=== PATIENT | female | born 1940 | race Caucasian/White ===

== ENCOUNTER 2018-11-23 17:33 | Observation (INO) | payer MEDICARE, BC ==
--- NOTE | 2018-11-23 17:53 | EDM.PDOC ---
ED HPI GENERAL MEDICAL PROBLEM - General Stated Complaint: LOW Sodium Time Seen by Provider: 11/23/18 17:33 Source of Information: Reports: Patient, Family History Limitations: Reports: No Limitations - History of Present Illness INITIAL COMMENTS - FREE TEXT/NARRATIVE: 78 y.o.w.f s/p left hip surgery on 11/12/2018 , came to the Clinic because of not feeling well. Her Na was 120 her K was 5.2. She was transferred to the ED for admission to the Hospital to correct her low sodium. Pt c/o epigastric pain with poor po intake in the past few days. She may have lost some weight as well. Pt is a poor historian. HPI was given by her daughter. Mild nausea, did not vomit, just feels week. BP 29/61 Pulse 64 Pulse ox 100% on RA, Temp 98.5 RR 17 Onset Date: 11/22/18 Onset Time: 18:00 Duration: Hour(s):, Getting Worse, Intermittent Location: Reports: Abdomen Quality: Reports: Ache, Burning, Dull Severity: Moderate Improves with: Reports: Rest Worsens with: Reports: Movement Context: Reports: Other (s/p left hip surgery 11/12/2018) Associated Symptoms: Reports: Weakness LEFT LEG Pain Score (Numeric/FACES): 4 - Related Data Allergies Allergy/AdvReac Type Severity Reaction Status Date / Time No Known Allergies Allergy Verified 11/23/18 18:44 Home Meds: Home Meds Acetaminophen 1,000 mg PO Q4H PRN 11/23/18 [History] Ascorbic Acid [Vitamin C] 1,000 mg PO DAILY 11/23/18 [History] Aspirin 81 mg PO BID 11/23/18 [History] Celecoxib [CeleBREX] 200 mg PO DAILY 11/23/18 [History] Cholecalciferol (Vitamin D3) [Vitamin D3] 5,000 unit PO DAILY 11/23/18 [History] Docusate Sodium [Colace] 100 mg PO BID 11/23/18 [History] Gabapentin [Neurontin] 300 mg PO BID 11/23/18 [History] Ibuprofen [Advil] 400 mg PO Q6H PRN 11/23/18 [History] Lactobacillus Reuteri [Biogaia] 1 each PO DAILY 11/23/18 [History] Levothyroxine [Synthroid] 100 mcg PO ACBREAKFAST 11/23/18 [History] Metoprolol Succinate [Toprol XL] 25 mg PO DAILY 11/23/18 [History] Ondansetron HCl [Zofran] 4 mg PO TID PRN 11/23/18 [History] Propylene Glycol [Systane Balance] 1 drop OP TID PRN 11/23/18 [History] Sulfamethoxazole/Trimethoprim [Bactrim Ds Tablet] 1 tab PO BID 11/23/18 [History ] amLODIPine Besylate [Norvasc] 10 mg PO DAILY 11/23/18 [History] cycloSPORINE [Restasis] 1 each .XX BID 11/23/18 [History] hydroCHLOROthiazide [Hydrochlorothiazide] 25 mg PO DAILY 11/23/18 [History] tiZANidine [Zanaflex] 4 mg PO DAILY 11/23/18 [History] ED ROS GENERAL - Review of Systems Review Of Systems: See Below Constitutional: Reports: Weakness, Fatigue HEENT: Reports: No Symptoms Respiratory: Reports: No Symptoms Cardiovascular: Reports: No Symptoms Endocrine: Reports: No Symptoms GI/Abdominal: Reports: Abdominal Pain (epigastric) : Reports: No Symptoms Musculoskeletal: Reports: Muscle Pain Skin: Reports: No Symptoms Neurological: Reports: No Symptoms Psychiatric: Reports: No Symptoms Hematologic/Lymphatic: Reports: No Symptoms Immunologic: Reports: No Symptoms ED EXAM, GENERAL - Physical Exam Exam: See Below Exam Limited By: No Limitations General Appearance: Alert, WD/WN, Moderate Distress Eye Exam: Bilateral Eye: Normal Inspection Ears: Normal External Exam Ear Exam: Bilateral Ear: Auricle Normal Nose: Normal Inspection, Normal Mucosa, No Blood Throat/Mouth: Normal Lips, Normal Voice, No Airway Compromise, Other (yvan mucosal mmebrane) Head: Atraumatic, Normocephalic Neck: Normal Inspection, Supple, Non-Tender, Full Range of Motion Respiratory/Chest: No Respiratory Distress, Lungs Clear, Normal Breath Sounds Cardiovascular: Normal Peripheral Pulses, Regular Rate, Rhythm, No Edema, No Gallop, No JVD Peripheral Pulses: 1+: Brachial (R) GI/Abdominal: Tender (epigastric tenderness) (Female) Exam: Deferred Rectal (Female) Exam: Deferred Back Exam: Normal Inspection, Full Range of Motion Extremities: Normal Inspection Neurological: Alert, Oriented, CN II-XII Intact, Abnormal Gait (s/p left hip surgery, walk with walker) Psychiatric: Normal Affect, Normal Mood Skin Exam: Warm, Dry, Intact, Normal Color, No Rash Lymphatic: No Adenopathy Course - Vital Signs Text/Narrative:: 78 y.o.w.f s/p left hip surgery on 11/12/2018 , came to the Clinic because of not feeling well. Her Na was 120 her K was 5.2. She was transferred to the ED for admission to the Hospital to correct her low sodium. Pt c/o epigastric pain with poor po intake in the past few days. She may have lost some weight as well. Pt is a poor historian. HPI was given by her daughter. Mild nausea, did not vomit, just feels week. BP 29/61 Pulse 64 Pulse ox 100% on RA, Temp 98.5 RR 17 PE: WNWD w f feeling week after hip surgery. NA was 120 in the clinic Imaging: Not indicated Labs: Was taken at [facility] and sent to ED: Na was 120 K was 5.2 CBC showed a nl WBC Impression: Hyponatremia, Weakness, S/P left hip surgery, gastritis Tx: NS, Zofran, Protonix Reecam: doing better, ECG pending Plan: Admit for obs with tele 5.57 pm Consultation: Dr. Sauer, hospitalist: Accepted the pt for admission Last Recorded V/S: Last Vital Signs Temp 36.8 C 11/23/18 19:15 Pulse 79 11/23/18 19:15 Resp 18 11/23/18 19:15 BP 130/63 11/23/18 19:15 Pulse Ox 99 11/23/18 19:15 - Orders/Labs/Meds Orders: Active Orders 24 hr Category Date Time Status Patient Status [ADT] Routine ADT 11/23/18 17:55 Active Cardiac Monitoring [RC] CONTINUOUS Care 11/23/18 17:58 Active Oxygen Therapy [RC] PRN Care 11/23/18 17:55 Active Up With Assistance [RC] ASDIRECTED Care 11/23/18 17:55 Active VTE/DVT Education [RC] Per Unit Routine Care 11/23/18 17:55 Active Vital Signs [RC] Q4H Care 11/23/18 17:55 Active BASIC METABOLIC PANEL,BMP [CHEM] Stat Lab 11/23/18 23:55 Ordered Resuscitation Status Routine Resus Stat 11/23/18 17:55 Ordered Meds: Medications Discontinued Medications Generic Name Dose Route Start Last Admin Trade Name Bong PRN Reason Stop Dose Admin Sodium Chloride 1,000 mls @ 500 mls/hr 11/23/18 18:03 11/23/18 18:29 Normal Saline IV 11/23/18 20:02 500 mls/hr .BOLUS ONE Administration Ondansetron HCl 8 mg 11/23/18 18:06 11/23/18 18:31 Zofran IVPUSH 11/23/18 18:07 8 mg ONETIME ONE Administration Pantoprazole Sodium 40 mg 11/23/18 18:06 11/23/18 18:34 Protonix Iv IVPUSH 11/23/18 18:07 40 mg ONETIME ONE Administration Departure - Departure Time of Disposition: 18:00 Disposition: Admitted As Inpatient 67 Condition: Fair Clinical Impression: Low sodium levels - Discharge Information - My Orders Last 24 Hours: My Active Orders 11/23/18 17:55 Patient Status [ADT] Routine Oxygen Therapy [RC] PRN Up With Assistance [RC] ASDIRECTED VTE/DVT Education [RC] Per Unit Routine Vital Signs [RC] Q4H Resuscitation Status Routine 11/23/18 17:58 Cardiac Monitoring [RC] CONTINUOUS 11/23/18 23:55 BASIC METABOLIC PANEL,BMP [CHEM] Stat - Assessment/Plan Last 24 Hours: My Active Orders 11/23/18 17:55 Patient Status [ADT] Routine Oxygen Therapy [RC] PRN Up With Assistance [RC] ASDIRECTED VTE/DVT Education [RC] Per Unit Routine Vital Signs [RC] Q4H Resuscitation Status Routine 11/23/18 17:58 Cardiac Monitoring [RC] CONTINUOUS 11/23/18 23:55 BASIC METABOLIC PANEL,BMP [CHEM] Stat
[2018-11-23] MEDS ORDERED: Sodium Chloride 0.9% 1,000 ML IV ONE (18:03)
[2018-11-23] MEDS ORDERED: Pantoprazole 40 MG Vial IVPUSH ONE (18:06)
[2018-11-23] MEDS ORDERED: Ondansetron 4 MG/2 ML SDV IVPUSH ONE (18:06)
[2018-11-23] MEDS ORDERED: Sodium Chloride 0.9% 1,000 ML IV SCH (21:00)
[2018-11-23] MEDS: Enoxaparin 30 MG/0.3 ML Syringe SUBCUT SCH (22:28)
[2018-11-23] MEDS ORDERED: diphenhydrAMINE 50 MG Cap PO ONE (23:45)
[2018-11-24] MEDS ORDERED: Acetaminophen 325 MG Tab PO PRN (01:38)
--- NOTE | 2018-11-24 08:21 | PCM.HP ---
H&P History of Present Illness - General Date of Service: 11/24/18 Admit Problem/Dx: Admission Diagnosis/Problem Admission Diagnosis/Problem Hyponatremia Source of Information: Patient History Limitations: Reports: No Limitations - History of Present Illness Initial Comments - Free Text/Narative: Lisa is a 78-year-old female who came in because of vomiting creel clerk weakness for 3 days. She also complained of anorexia, nausea and general malaise. She was found to have a sodium 120 the clinic and admitted for rehydration. She does admit to drinking lots of water and sodium was normal last year but after hip surgery a few months ago start trending downwards. Was 128 in September. She complains of no cough or chest pain and she has no headache or visual disturbance. She has a history of spinal hemostasis the lumbar spine, hypothyroidism, and hypertension that previously well controlled. Headache Pain Score (Numeric/FACES): 6 LEFT LEG Pain Score (Numeric/FACES): 4 - Related Data Allergies/Adverse Reactions: Allergies Allergy/AdvReac Type Severity Reaction Status Date / Time No Known Allergies Allergy Verified 11/23/18 18:44 Home Medications: Home Meds Acetaminophen 1,000 mg PO Q4H PRN 11/23/18 [History] Ascorbic Acid [Vitamin C] 1,000 mg PO DAILY 11/23/18 [History] Aspirin 81 mg PO BID 11/23/18 [History] Cholecalciferol (Vitamin D3) [Vitamin D3] 2,000 unit PO BEDTIME 11/23/18 [ History] Cholecalciferol (Vitamin D3) [Vitamin D3] 3,000 unit PO DAILY 11/23/18 [History] Docusate Sodium [Colace] 200 mg PO BID 11/23/18 [History] Ferrous Gluconate [Iron] 65 mg PO BID 11/23/18 [History] Gabapentin [Neurontin] 300 mg PO BEDTIME 11/23/18 [History] Lactobacillus Reuteri [Biogaia] 1 each PO DAILY 11/23/18 [History] Levothyroxine [Synthroid] 100 mcg PO ACBREAKFAST 11/23/18 [History] Metoprolol Succinate [Toprol XL] 25 mg PO DAILY 11/23/18 [History] Ondansetron HCl [Zofran] 4 mg PO TID PRN 11/23/18 [History] Propylene Glycol [Systane Balance] 1 drop OP TID PRN 11/23/18 [History] amLODIPine Besylate [Norvasc] 10 mg PO DAILY 11/23/18 [History] cycloSPORINE [Restasis] 1 each .XX BID 11/23/18 [History] hydroCHLOROthiazide [Hydrochlorothiazide] 25 mg PO DAILY 11/23/18 [History] tiZANidine [Zanaflex] 4 mg PO BEDTIME 11/23/18 [History] 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: Endocrine/Metabolic History: Reports: Hypothyroidism - Past Surgical History Female Surgical History: Reports: Hysterectomy Other Musculoskeletal Surgeries/Procedures:: BACK SURGERY, HIP SURGERY Social & Family History - Family History Family Medical History: Noncontributory - Tobacco Use Smoking Status *Q: Former Smoker Used Tobacco, but Quit: Yes Month/Year Tobacco Last Used: 1969 Second Hand Smoke Exposure: No - Caffeine Use Caffeine Use: Reports: Coffee - Recreational Drug Use Recreational Drug Use: No H&P Review of Systems - Review of Systems: Review Of Systems: ROS reveals no pertinent complaints other than HPI. Exam - Exam Exam: See Below - Vital Signs Vital Signs: Last Vital Signs Temp 98.2 F 11/24/18 04:00 Pulse 74 11/24/18 04:00 Resp 16 11/24/18 04:00 BP 150/80 H 11/24/18 04:00 Pulse Ox 96 11/24/18 04:00 Weight: 74.026 kg - Exam General: Alert, Oriented, 4 HEENT: PERRLA, Hearing Intact, Mucosa Moist & [place], Nares Patent, Normal Nasal Septum, Posterior Pharynx Clear, Conjunctiva Clear, EOMI, EACs Clear, TMs Clear Neck: Supple, Trachea Midline, 2 Lungs: Clear to Auscultation, Normal Respiratory Effort Cardiovascular: Regular Rate, Regular Rhythm GI/Abdominal Exam: Normal Bowel Sounds, Soft, Non-Tender, No Organomegaly, No Distention, No Abnormal Bruit, No Mass, Pelvis Stable (Female) Exam: Deferred Rectal (Female) Exam: Deferred Back Exam: Normal Inspection, Full Range of Motion, NT Extremities: Normal Inspection, Normal Range of Motion, Non-Tender, No Pedal Edema, Normal Capillary Refill Skin: Warm, Dry, Intact Neurological: Cranial Nerves Intact, Reflexes Equal Bilateral Neuro Extensive - Mental Status: Alert, Oriented x3, Normal Mood/Affect, Normal Cognition Neuro Extensive - Motor, Sensory, Reflexes: CN II-XII Intact, Normal Gait, Normal Reflexes Psychiatric: Alert, Normal Affect, Normal Mood - Patient Data Lab Results Last 24 hrs: Laboratory Results - last 24 hr 11/23/18 11/23/18 11/24/18 Range/Units 21:30 23:55 06:20 WBC 5.0 (4.5-12.0) X10-3/uL RBC 2.78 L (3.23-5.20) x10(6)uL Hgb 9.7 L (11.5-15.5) g/dL Hct 27.9 L (30.0-51.3) % MCV 100.5 H (80-96) fL MCH 35.1 H (27.7-33.6) pg MCHC 34.9 (32.2-35.4) g/dL RDW 12.0 (11.5-15.5) % Plt Count 288 (125-369) X10(3)uL MPV 8.0 (7.4-10.4) fL Neut % (Auto) 72.4 (46-82) % Lymph % (Auto) 17.4 (13-37) % [place] % (Auto) 8.6 (4-12) % Eos % (Auto) 2 (1.0-5.0) % Baso % (Auto) 0 (0-2) % Neut # (Auto) 3.6 (1.6-8.3) # Lymph # (Auto) 0.9 (0.6-5.0) # [place] # (Auto) 0.4 (0.0-1.3) # Eos # (Auto) 0.1 (0.0-0.8) # Baso # (Auto) 0.0 (0.0-0.2) # Sodium 122 L (135-145) mmol/L Potassium 4.1 (3.5-5.3) mmol/L Chloride 87 L* (100-110) mmol/L Carbon Dioxide 25 (21-32) mmol/L BUN 22 H (7-18) mg/dL Creatinine 1.0 (0.55-1.02) mg/dL Est Cr Clr Drug Dosing 37.26 mL/min Estimated GFR (MDRD) 54 L (>60) BUN/Creatinine Ratio 22.0 H (9-20) Glucose 107 (80-116) mg/dL Calcium 8.6 (8.6-10.2) mg/dL Total Bilirubin (0.1-1.3) mg/dL AST (5-25) IU/L ALT (12-36) U/L Alkaline Phosphatase (56-112) IU/L Total Protein (6.0-8.0) g/dL Albumin (3.2-4.6) g/dL Globulin g/dL Albumin/Globulin Ratio Urine Color Yellow (YELLOW) Urine Appearance Clear (CLEAR) Urine pH 6.0 (5.0-6.5) Ur Specific [place] 1.005 L (1.010-1.025) Urine Protein Negative (NEGATIVE) mg/dL Urine Glucose (UA) Normal (NORMAL) mg/dL Urine Ketones Negative (NEGATIVE) mg/dL Urine Occult Blood Negative (NEGATIVE) Urine Nitrite Negative (NEGATIVE) Urine Bilirubin Negative (NEGATIVE) Urine Urobilinogen Normal (NEGATIVE) mg/dL Ur Leukocyte Esterase Negative (NEGATIVE) Urine RBC Not seen (0-5) Urine WBC 0-5 (0-5) Ur Squamous Epith Cells Rare (NS,R,O) Urine Bacteria Rare H (NS) 11/24/18 Range/Units 06:20 WBC (4.5-12.0) X10-3/uL RBC (3.23-5.20) x10(6)uL Hgb (11.5-15.5) g/dL Hct (30.0-51.3) % MCV (80-96) fL MCH (27.7-33.6) pg MCHC (32.2-35.4) g/dL RDW (11.5-15.5) % Plt Count (125-369) X10(3)uL MPV (7.4-10.4) fL Neut % (Auto) (46-82) % Lymph % (Auto) (13-37) % [place] % (Auto) (4-12) % Eos % (Auto) (1.0-5.0) % Baso % (Auto) (0-2) % Neut # (Auto) (1.6-8.3) # Lymph # (Auto) (0.6-5.0) # [place] # (Auto) (0.0-1.3) # Eos # (Auto) (0.0-0.8) # Baso # (Auto) (0.0-0.2) # Sodium 123 L (135-145) mmol/L Potassium 4.0 (3.5-5.3) mmol/L Chloride 89 L* (100-110) mmol/L Carbon Dioxide 26 (21-32) mmol/L BUN 18 (7-18) mg/dL Creatinine 1.0 (0.55-1.02) mg/dL Est Cr Clr Drug Dosing 37.26 mL/min Estimated GFR (MDRD) 54 L (>60) BUN/Creatinine Ratio 18.0 (9-20) Glucose 115 (80-116) mg/dL Calcium 8.6 (8.6-10.2) mg/dL Total Bilirubin 0.4 (0.1-1.3) mg/dL AST 49 H (5-25) IU/L ALT 31 (12-36) U/L Alkaline Phosphatase 68 (56-112) IU/L Total Protein 6.8 (6.0-8.0) g/dL Albumin 3.1 L (3.2-4.6) g/dL Globulin 3.7 g/dL Albumin/Globulin Ratio 0.8 Urine Color (YELLOW) Urine Appearance (CLEAR) Urine pH (5.0-6.5) Ur Specific [place] (1.010-1.025) Urine Protein (NEGATIVE) mg/dL Urine Glucose (UA) (NORMAL) mg/dL Urine Ketones (NEGATIVE) mg/dL Urine Occult Blood (NEGATIVE) Urine Nitrite (NEGATIVE) Urine Bilirubin (NEGATIVE) Urine Urobilinogen (NEGATIVE) mg/dL Ur Leukocyte Esterase (NEGATIVE) Urine RBC (0-5) Urine WBC (0-5) Ur Squamous Epith Cells (NS,R,O) Urine Bacteria (NS) Result Diagrams: 11/24/18 06:20 11/24/18 06:20 - Problem List (1) Low sodium levels SNOMED Code(s): 34336047 ICD Code: E87.1 - HYPO-OSMOLALITY AND HYPONATREMIA Status: Acute Current Visit: Yes (2) Hypothyroidism SNOMED Code(s): 64307247 ICD Code: E03.9 - HYPOTHYROIDISM, UNSPECIFIED Status: Chronic Current Visit: Yes (3) HTN (hypertension) SNOMED Code(s): 41014988 ICD Code: I10 - ESSENTIAL (PRIMARY) HYPERTENSION Status: Chronic Current Visit: Yes Qualifiers: Hypertension type: essential hypertension Qualified Code(s): I10 - Essential (primary) hypertension (4) Lumbar back pain SNOMED Code(s): 528908406 ICD Code: M54.5 - LOW BACK PAIN Status: Chronic Current Visit: Yes (5) Rheumatoid arthritis SNOMED Code(s): 41802292 ICD Code: M06.9 - RHEUMATOID ARTHRITIS, UNSPECIFIED Status: Chronic Current Visit: Yes (6) Anemia SNOMED Code(s): 960232955 ICD Code: D64.9 - ANEMIA, UNSPECIFIED Status: Chronic Current Visit: Yes Problem List Initiated/Reviewed/Updated: Yes Orders Last 24hrs: Active Orders 24 hr Category Date Time Status Patient Status [ADT] Routine ADT 11/23/18 17:55 Active Cardiac Monitoring [RC] CONTINUOUS Care 11/23/18 17:58 Active Oxygen Therapy [RC] PRN Care 11/23/18 17:55 Active Up With Assistance [RC] ASDIRECTED Care 11/23/18 17:55 Active VTE/DVT Education [RC] Per Unit Routine Care 11/23/18 17:55 Active Vital Signs [RC] 08,12,16,20,00,04 Care 11/23/18 17:55 Active Regular Diet [DIET] Diet 11/24/18 Breakfast Active OSMOLALITY Urgent Lab 11/24/18 06:20 Received OSMOLALITY, URINE Urgent Lab 11/24/18 07:40 Ordered TSH ULTRASENSITIVE [CHEM] Routine Lab 11/24/18 07:40 Received Acetaminophen [Tylenol] Med 11/24/18 01:38 Active 650 mg PO Q4H PRN Enoxaparin [Lovenox] Med 11/23/18 22:00 Active 30 mg SUBCUT Q24H Sodium Chloride 0.9% [Normal Saline] 1,000 ml Med 11/24/18 00:44 Active IV ASDIRECTED Resuscitation Status Routine Resus Stat 11/23/18 17:55 Ordered EKG 12 Lead [EK] Routine Ther 11/23/18 18:33 Ordered Medication Orders Acetaminophen (Tylenol) 650 mg PO Q4H PRN PRN Reason: Pain Last Admin: 11/24/18 02:07 Dose: 650 mg Enoxaparin Sodium (Lovenox) 30 mg SUBCUT Q24H [facility] Last Admin: 11/23/18 22:28 Dose: 30 mg Sodium Chloride (Normal Saline) 1,000 mls @ 75 mls/hr IV ASDIRECTED [facility] Assessment/Plan Comment:: The cause of the hyponatremia is unclear but it's possibly hypoosmolar Isovolemic. I will obtain a serum and urine osmolality I recommend continuation of IV fluid resuscitation, with crystalloid normal saline, restrict free water to less than thousand ml a day, and stop the hydrochlorothiazide. Will repeat sodium in the morning.
[2018-11-24] MEDS ORDERED: Ondansetron 4 MG/2 ML SDV IVPUSH PRN (08:23)
[2018-11-24] MEDS ORDERED: PROPYLENE GLYCOL 0.6% EYEBOTH PRN (08:25)
[2018-11-24] MEDS ORDERED: Acetaminophen 500 MG Tab PO PRN ×2 (08:25→18:52)
[2018-11-24] MEDS: Sodium Chloride 0.9% 1,000 ML IV SCH ×2 (08:31→21:54)
[2018-11-24] MEDS ORDERED: cycloSPORINE Ophth Drops U/D Box of 30 SCH (09:00)
[2018-11-24] MEDS: amLODIPine 10 MG Tab ** OWN MED PO SCH (11:40)
[2018-11-24] MEDS: METOPROLOL SUCCINATE 25 MG PO SCH (11:41)
[2018-11-24] MEDS: Docusate Sodium 100 MG Cap PO SCH ×2 (13:00→21:01)
[2018-11-24] MEDS: Ascorbic Acid 500 MG Tab PO SCH (13:00)
[2018-11-24] MEDS: Cholecalciferol (Vitamin D3) 1,000 Unit Tab PO SCH (13:00)
[2018-11-24] MEDS: Aspirin 81 MG Tab.Chew PO SCH ×2 (13:00→21:00)
[2018-11-24] MEDS: Lactobacillus Rhamnosus GG (Probiotic) Cap PO SCH (13:00)
[2018-11-24] MEDS: Pantoprazole 40 MG Tab.CR PO SCH (13:51)
[2018-11-24] MEDS: FERROUS GLUCONATE 65 MG PO SCH ×2 (18:57→21:01)
[2018-11-24] MEDS ORDERED: Gabapentin 300 MG Cap ** OWN MED PO SCH (21:00)
[2018-11-24] MEDS ORDERED: TIZANIDINE 4 MG PO SCH (21:00)
[2018-11-24] MEDS ORDERED: Cholecalciferol (Vitamin D3) 1,000 Unit Tab PO SCH (21:00)
[2018-11-24] MEDS: Enoxaparin 30 MG/0.3 ML Syringe SUBCUT SCH (21:07)
[2018-11-25] MEDS ORDERED: Levothyroxine 100 MCG Tab ** OWN MED PO SCH (07:30)
--- NOTE | 2018-11-25 08:32 | PCM.PN ---
- General Info Date of Service: 11/25/18 Subjective Update: Feels much better. Some nausea at the end of meals. - Review of Systems HEENT: Reports: No Symptoms Pulmonary: Reports: No Symptoms Cardiovascular: Reports: No Symptoms Genitourinary: Reports: No Symptoms - Patient Data Vitals - Most Recent: Last Vital Signs Temp 98.0 F 11/25/18 02:00 Pulse 67 11/25/18 02:00 Resp 16 11/25/18 02:00 BP 150/80 H 11/25/18 02:00 Pulse Ox 94 L 11/25/18 02:00 Weight - Most Recent: 74.026 kg I&O - Last 24 Hours: Intake & Output 11/24/18 11/25/18 11/25/18 22:59 06:59 14:59 Intake Total 555 555 Balance 555 555 Lab Results Last 24 Hours: Laboratory Results - last 24 hr 11/24/18 11/25/18 11/25/18 Range/Units 06:20 06:20 06:20 WBC 4.4 L (4.5-12.0) X10-3/uL RBC 2.79 L (3.23-5.20) x10(6)uL Hgb 9.8 L (11.5-15.5) g/dL Hct 28.1 L (30.0-51.3) % MCV 100.8 H (80-96) fL MCH 35.0 H (27.7-33.6) pg MCHC 34.8 (32.2-35.4) g/dL RDW 12.0 (11.5-15.5) % Plt Count 309 (125-369) X10(3)uL MPV 7.5 (7.4-10.4) fL Add Manual Diff Yes Neutrophils % (Manual) 53 (46-82) % Lymphocytes % (Manual) 32 (13-37) % Monocytes % (Manual) 15 H (4-12) % Macrocytosis Few Sodium 130 L (135-145) mmol/L Potassium 4.2 (3.5-5.3) mmol/L Chloride 94 L D (100-110) mmol/L Carbon Dioxide 29 (21-32) mmol/L BUN 15 (7-18) mg/dL Creatinine 0.7 (0.55-1.02) mg/dL Est Cr Clr Drug Dosing 53.23 mL/min Estimated GFR (MDRD) > 60 (>60) BUN/Creatinine Ratio 21.4 H (9-20) Glucose 96 (80-116) mg/dL Calcium 8.6 (8.6-10.2) mg/dL Total Bilirubin 0.3 (0.1-1.3) mg/dL AST 48 H (5-25) IU/L ALT 32 (12-36) U/L Alkaline Phosphatase 69 (56-112) IU/L Total Protein 6.5 (6.0-8.0) g/dL Albumin 2.9 L (3.2-4.6) g/dL Globulin 3.6 g/dL Albumin/Globulin Ratio 0.8 TSH, Ultra Sensitive 3.11 (0.36-3.74) IU/mL Med Orders - Current: Current Medications Acetaminophen (Tylenol Extra Strength) 1,000 mg PO Q6H PRN PRN Reason: Pain Amlodipine Besylate (Norvasc) 10 mg PO DAILY [facility] Last Admin: 11/24/18 11:40 Dose: 10 mg Ascorbic Acid (Vitamin C) 1,000 mg PO DAILY [facility] Last Admin: 11/24/18 13:00 Dose: 1,000 mg Aspirin (Aspirin) 81 mg PO BID [facility] Last Admin: 11/24/18 21:00 Dose: 81 mg Cholecalciferol (Vitamin D3) 2,000 units PO BEDTIME [facility] Last Admin: 11/24/18 21:01 Dose: 2,000 units Cholecalciferol (Vitamin D3) 3,000 units PO DAILY [facility] Last Admin: 11/24/18 13:00 Dose: 3,000 units Cyclosporine (Restasis) 1 each .XX BID [facility] Docusate Sodium (Colace) 200 mg PO BID [facility] Last Admin: 11/24/18 21:01 Dose: 200 mg Enoxaparin Sodium (Lovenox) 30 mg SUBCUT Q24H [facility] Last Admin: 11/24/18 21:07 Dose: 30 mg Gabapentin (Neurontin) 300 mg PO BEDTIME [facility] Last Admin: 11/24/18 21:01 Dose: 300 mg Sodium Chloride (Normal Saline) 1,000 mls @ 75 mls/hr IV ASDIRECTED [facility] Last Admin: 11/24/18 21:54 Dose: 75 mls/hr Lactobacillus Rhamnosus (Culturelle) 1 cap PO DAILY [facility] Last Admin: 11/24/18 13:00 Dose: 1 cap Levothyroxine Sodium (Synthroid) 100 mcg PO ACBREAKFAST [facility] Last Admin: 11/25/18 07:08 Dose: 100 mcg Metoprolol Succinate (Toprol Xl) 25 mg PO DAILY [facility] Last Admin: 11/24/18 11:41 Dose: 25 mg Ferrous Gluconate [ Iron] 65mg Own Med 65 mg PO BID [facility] Last Admin: 11/24/18 21:01 Dose: 65 mg Ondansetron HCl (Zofran) 4 mg IVPUSH Q6H PRN PRN Reason: Nausea/Vomiting Last Admin: 11/24/18 11:33 Dose: 4 mg Pantoprazole Sodium (Protonix) 40 mg PO 0900 [facility] Last Admin: 11/24/18 13:51 Dose: 40 mg Propylene Glycol (Systane Balance) 0 ml EYEBOTH TID PRN PRN Reason: Dry Eyes Tizanidine HCl (Zanaflex) 4 mg PO BEDTIME [facility] Last Admin: 11/24/18 21:02 Dose: 4 mg Discontinued Medications Acetaminophen (Tylenol) 650 mg PO Q4H PRN PRN Reason: Pain Last Admin: 11/24/18 02:07 Dose: 650 mg Acetaminophen (Tylenol Extra Strength) 1,000 mg PO Q4H PRN PRN Reason: Pain Diphenhydramine HCl (Benadryl) 50 mg PO ONETIME ONE Stop: 11/23/18 23:46 Last Admin: 11/24/18 00:13 Dose: 50 mg Sodium Chloride (Normal Saline) 1,000 mls @ 500 mls/hr IV .BOLUS ONE Stop: 11/23/18 20:02 Last Admin: 11/23/18 18:29 Dose: 500 mls/hr Sodium Chloride (Normal Saline) 1,000 mls @ 125 mls/hr IV ASDIRECTED [facility] Last Admin: 11/23/18 21:00 Dose: 125 mls/hr Ondansetron HCl (Zofran) 8 mg IVPUSH ONETIME ONE Stop: 11/23/18 18:07 Last Admin: 11/23/18 18:31 Dose: 8 mg Pantoprazole Sodium (Protonix Iv) 40 mg IVPUSH ONETIME ONE Stop: 11/23/18 18:07 Last Admin: 11/23/18 18:34 Dose: 40 mg - Exam General: Alert HEENT: Pupils Equal Neck: Supple Lungs: Clear to Auscultation Cardiovascular: Regular Rate, Murmurs GI/Abdominal Exam: Normal Bowel Sounds - Problem List & Annotations (1) Low sodium levels SNOMED Code(s): 16322545 Code(s): E87.1 - HYPO-OSMOLALITY AND HYPONATREMIA Status: Acute Current Visit: Yes (2) Hypothyroidism SNOMED Code(s): 39231791 Code(s): E03.9 - HYPOTHYROIDISM, UNSPECIFIED Status: Chronic Current Visit: Yes Qualifiers: Hypothyroidism type: acquired Qualified Code(s): E03.9 - Hypothyroidism, unspecified (3) HTN (hypertension) SNOMED Code(s): 25145762 Code(s): I10 - ESSENTIAL (PRIMARY) HYPERTENSION Status: Chronic Current Visit: Yes Qualifiers: Hypertension type: essential hypertension Qualified Code(s): I10 - Essential (primary) hypertension (4) Lumbar back pain SNOMED Code(s): 864353456 Code(s): M54.5 - LOW BACK PAIN Status: Chronic Current Visit: Yes (5) Rheumatoid arthritis SNOMED Code(s): 10765959 Code(s): M06.9 - RHEUMATOID ARTHRITIS, UNSPECIFIED Status: Chronic Current Visit: Yes (6) Anemia SNOMED Code(s): 424156345 Code(s): D64.9 - ANEMIA, UNSPECIFIED Status: Chronic Current Visit: Yes (7) S/P hip replacement SNOMED Code(s): 644064655, 477427414, 276154485, 260594133 Code(s): Z96.649 - PRESENCE OF UNSPECIFIED ARTIFICIAL HIP JOINT Status: Acute Current Visit: Yes (8) GERD (gastroesophageal reflux disease) SNOMED Code(s): 910917800 Code(s): K21.9 - GASTRO-ESOPHAGEAL REFLUX DISEASE WITHOUT ESOPHAGITIS Status: Acute Current Visit: Yes Qualifiers: Esophagitis presence: with esophagitis Qualified Code(s): K21.0 - Gastro- esophageal reflux disease with esophagitis - Problem List Review Problem List Initiated/Reviewed/Updated: Yes - My Orders Last 24 Hours: My Active Orders 11/24/18 08:23 Ondansetron [Zofran] 4 mg IVPUSH Q6H PRN 11/24/18 08:25 Propylene Glycol [Systane Balance] 0 ml EYEBOTH TID PRN 11/24/18 09:00 Ascorbic Acid [Vitamin C] 1,000 mg PO DAILY Aspirin 81 mg PO BID Cholecalciferol (Vitamin D3) [Vitamin D3] 3,000 units PO DAILY Docusate Sodium [Colace] 200 mg PO BID Ferrous Gluconate [Iron] 65 mg PO BID Lactobacillus Rhamnosus GG [Culturelle] 1 cap PO DAILY Metoprolol Succinate [Toprol XL] 25 mg PO DAILY Pantoprazole [ProTONIX] 40 mg PO 0900 amLODIPine [Norvasc] 10 mg PO DAILY cycloSPORINE [Restasis] 1 each .XX BID 11/24/18 09:10 OSMOLALITY, URINE Urgent 11/24/18 18:52 Acetaminophen [Tylenol Extra Strength] 1,000 mg PO Q6H PRN 11/24/18 21:00 Cholecalciferol (Vitamin D3) [Vitamin D3] 2,000 units PO BEDTIME Gabapentin [Neurontin] 300 mg PO BEDTIME tiZANidine [Zanaflex] 4 mg PO BEDTIME 11/24/18 Lunch Fluid Restriction [DIET] 11/25/18 07:30 Levothyroxine [Synthroid] 100 mcg PO ACBREAKFAST - Plan Plan:: Florencio feels much better today. Nausea is improved. Strength is better; appetite improved. Sodium is at 130. I will discharge her home. I've discontinued Bactrim because of the rash. I would have her discuss with her orthopedist about an alternative. She will also go home on Protonix but have also discontinued HCTZ
[2018-11-25] MEDS: Aspirin 81 MG Tab.Chew PO SCH (08:51)
[2018-11-25] MEDS: Docusate Sodium 100 MG Cap PO SCH (08:51)
[2018-11-25] MEDS: amLODIPine 10 MG Tab ** OWN MED PO SCH (08:53)
[2018-11-25] MEDS: FERROUS GLUCONATE 65 MG PO SCH (08:53)
[2018-11-25] MEDS: Lactobacillus Rhamnosus GG (Probiotic) Cap PO SCH (08:53)
[2018-11-25] MEDS: METOPROLOL SUCCINATE 25 MG PO SCH (08:53)
[2018-11-25] MEDS: Cholecalciferol (Vitamin D3) 1,000 Unit Tab PO SCH (08:54)
[2018-11-25] MEDS: Ascorbic Acid 500 MG Tab PO SCH (08:54)
[2018-11-25] MEDS: Pantoprazole 40 MG Tab.CR PO SCH (08:56)
== END 2018-11-25 12:37 | disposition home or self-care (01) ==
LOC: FB.ED 17:33 → FB.MS 18:26
PROVIDERS: ADMIT Family Medicine; ATTEND Family Medicine
DX: E87.1 Hypo-osmolality and hyponatremia (principal); E03.9 Hypothyroidism, unspecified; I10 Essential (primary) hypertension; D64.9 Anemia, unspecified; M06.9 Rheumatoid arthritis, unspecified; M54.5 Low back pain; G89.29 Other chronic pain; Z87.891 Personal history of nicotine dependence; Z79.82 Long term (current) use of aspirin; Z79.899 Other long term (current) drug therapy; Z98.890 Other specified postprocedural states
CPT/HCPCS: 36415; 80048; 80053; 81001; 83930; 83935; 84443; 85025; 93005; 96365; 96375; 99284; A9270; C9113; J1650; J2405; J7030

== ENCOUNTER 2020-04-07 10:24 | Day surgery (SDC) | payer MEDICARE, BC ==
[2020-04-07] MEDS ORDERED: fentaNYL 100 MCG/2 ML SDV IV ONE (10:25)
[2020-04-07] MEDS ORDERED: Midazolam 1 MG/ML 2 ML SDV IV ONE (10:25)
[2020-04-07] MEDS ORDERED: Sodium Chloride 0.9% 10 ML Syringe FLUSH PRN (10:30)
[2020-04-07] MEDS ORDERED: Lactated Ringers 1,000 ML IV PRN (10:30)
[2020-04-07] MEDS ORDERED: acetaZOLAMIDE 500 MG Cap.ER PO ONE (12:30)
--- NOTE | 2020-04-08 08:05 | OR ---
DATE OF OPERATION: 04/07/2020 SURGEON: Ann Che MD PREOPERATIVE DIAGNOSIS: Visually significant cataract, right eye. POSTOPERATIVE DIAGNOSIS: Visually significant cataract, right eye. PROCEDURES PERFORMED: Phacoemulsification with intraocular lens placement, right eye. ASSISTANTS: None. ANESTHESIA: Local with sedation. COMPLICATIONS: None. BLOOD LOSS: None. IMPLANTS: An Giacomo ACU0T0, 21.5 diopter lens, serial number [id number] implanted. CDE: 2.70. DESCRIPTION OF PROCEDURE: After risks and benefits were reviewed with the patient, consent was obtained in the preoperative area, and the operative eye was marked with a surgical pen. In the preoperative area, a pledget was used to dilate the pupil consisting of a mixture of phenylephrine 10%, cyclopentolate 2%, moxifloxacin 0.5%, and bupivacaine 0.75%. The patient was taken to the operating room, where a time-out was performed, and the patient was placed under monitored anesthesia care. Topical tetracaine was used for anesthesia. The operative eye was prepped and draped for ophthalmic surgery, and the microscope was brought into position and focused. A paracentesis incision was made, followed by injection of preservative-free 1% lidocaine into the anterior chamber, followed by injection of Viscoat into the anterior chamber. A microkeratome blade was used to make a corneal limbal incision temporally. A cystotome was used to make the beginning of the capsulorrhexis, which was carried around 360 degrees in a curvilinear fashion using Utrata forceps. A Mendieta cannula with BSS was used to hydrodissect and hydrodelineate the nucleus. The nucleus was removed in a divide and conquer manner using phacoemulsification. Irrigation and aspiration were used to remove the remaining cortical material. Provisc was used to inflate the capsular bag, and a pre-loaded Giacomo ACU0T0, 21.5 diopter lens, serial number [id number] was injected into the capsular bag. A Sinskey hook was used to position and center the lens. Next, irrigation and aspiration was used to remove any remaining viscoelastic and cortical material from the anterior chamber. BSS on a cannula was used to inflate the anterior chamber and hydrate the wound. The wound was checked and found to be watertight. 1 mg of Moxifloxacin was injected into the anterior chamber. Drapes were removed and the eye was cleaned. A drop of brimonidine 0.15% and a drop of TobraDex was placed. The eye was shielded, and the patient was taken to the recovery room in stable condition. /[id number] MARGE/JOI
== END 2020-04-07 12:45 | disposition home or self-care (01) ==
LOC: FB.SDS 10:24
PROVIDERS: ATTEND Ophthalmology
DX: H25.813 Combined forms of age-related cataract, bilateral (principal); H35.3131 Nonexudative age-related macular degeneration, bilateral, early dry stage; M35.01 Sjogren syndrome with keratoconjunctivitis; E03.9 Hypothyroidism, unspecified; I10 Essential (primary) hypertension; Z79.899 Other long term (current) drug therapy; Z88.8 Allergy status to other drugs, medicaments and biological substances; Z79.890 Hormone replacement therapy; Z98.890 Other specified postprocedural states; Z87.891 Personal history of nicotine dependence
CPT/HCPCS: 00142; 66984; A9270; J2250; J3010; V2632

== ENCOUNTER 2020-04-21 10:01 | Day surgery (SDC) | payer MEDICARE, BC ==
[~2020-04-21 10:01] MED LIST: Lactated Ringers 1,000 ML IV SCH; Sodium Chloride 0.9% 10 ML Syringe FLUSH PRN
[2020-04-21] MEDS ORDERED: Midazolam 1 MG/ML 2 ML SDV IV ONE (10:02)
[2020-04-21] MEDS ORDERED: fentaNYL 100 MCG/2 ML SDV IV ONE (10:02)
[2020-04-21] MEDS ORDERED: acetaZOLAMIDE 500 MG Cap.ER PO ONE (10:36)
--- NOTE | 2020-04-21 13:08 | OR ---
DATE OF OPERATION: 04/21/2020 SURGEON: Ann Che MD PREOPERATIVE DIAGNOSIS: Visually significant cataract, left eye. POSTOPERATIVE DIAGNOSIS: Visually significant cataract, left eye. PROCEDURES PERFORMED: Phacoemulsification with intraocular lens placement, left eye. ASSISTANTS: None. ANESTHESIA: Local with sedation. COMPLICATIONS: None. BLOOD LOSS: None. IMPLANTS: An Giacomo ACU0T0, 23.0 diopter lens, serial number [id number] implanted. CDE: 3.16. DESCRIPTION OF PROCEDURE: After risks and benefits were reviewed with the patient, consent was obtained in the preoperative area, and the operative eye was marked with a surgical pen. In the preoperative area, a pledget was used to dilate the pupil consisting of a mixture of phenylephrine 10%, cyclopentolate 2%, moxifloxacin 0.5%, and bupivacaine 0.75%. The patient was taken to the operating room, where a time-out was performed, and the patient was placed under monitored anesthesia care. Topical tetracaine was used for anesthesia. The operative eye was prepped and draped for ophthalmic surgery, and the microscope was brought into position and focused. A paracentesis incision was made, followed by injection of preservative-free 1% lidocaine into the anterior chamber, followed by injection of Viscoat into the anterior chamber. A microkeratome blade was used to make a corneal limbal incision temporally. A cystotome was used to make the beginning of the capsulorrhexis, which was carried around 360 degrees in a curvilinear fashion using Utrata forceps. A Mendieta cannula with BSS was used to hydrodissect and hydrodelineate the nucleus. The nucleus was removed in a divide and conquer manner using phacoemulsification. Irrigation and aspiration were used to remove the remaining cortical material. Provisc was used to inflate the capsular bag, and a pre-loaded Giacomo ACU0T0, 23.0 diopter lens, serial number [id number] was injected into the capsular bag. A Sinskey hook was used to position and center the lens. Next, irrigation and aspiration was used to remove any remaining viscoelastic and cortical material from the anterior chamber. BSS on a cannula was used to inflate the anterior chamber and hydrate the wound. The wound was checked and found to be watertight. 1 mg of Moxifloxacin was injected into the anterior chamber. Drapes were removed and the eye was cleaned. A drop of brimonidine 0.15% and a drop of TobraDex was placed. The eye was shielded, and the patient was taken to the recovery room in stable condition. /[id number] [id number] MARGE/JOI STEVENS
== END 2020-04-21 12:02 | disposition home or self-care (01) ==
LOC: FB.SDS 10:01
PROVIDERS: ATTEND Ophthalmology
DX: H25.811 Combined forms of age-related cataract, right eye (principal); H35.3131 Nonexudative age-related macular degeneration, bilateral, early dry stage; M35.01 Sjogren syndrome with keratoconjunctivitis; I10 Essential (primary) hypertension; E03.9 Hypothyroidism, unspecified; Z98.890 Other specified postprocedural states; Z87.891 Personal history of nicotine dependence; Z79.899 Other long term (current) drug therapy; Z88.8 Allergy status to other drugs, medicaments and biological substances; Z79.890 Hormone replacement therapy
CPT/HCPCS: 00142; 66984; A9270; J2250; J3010; V2632

== ENCOUNTER 2024-12-18 07:59 | Inpatient (IN) | payer MEDICARE, BC ==
[2024-12-18] MEDS: Potassium Chloride 10 MEQ Tab.ER PO SCH (20:10)
[2024-12-18] MEDS: NINTEDANIB ESYLATE 150 MG PO SCH (20:22)
[2024-12-18] MEDS: Budesonide 0.5 MG/2 ML Neb Susp INH SCH (20:23)
[2024-12-19] MEDS: Multivitamins with Iron/Calcium/Folic Acid/Minerals Tab PO SCH (08:20)
[2024-12-19] MEDS: Cholecalciferol (Vitamin D3) 5,000 UNIT Cap PO SCH (08:21)
[2024-12-22 07:02] LABS: BLOOD UREA NITROGEN,BUN 27 mg/dL (7-18); CHLORIDE,CL 94 mmol/L (100-110); CREATININE 0.7 mg/dL (0.55-1.02); EST CRCL DRUG DOSING (CG) 46.44 mL/min; ESTIMATED GFR 86 mL/min (>60); GLUCOSE RANDOM 90 mg/dL (80-116); POTASSIUM,K 3.4 mmol/L (3.5-5.3); SODIUM,NA 137 mmol/L (135-145)
[2024-12-22 07:18] LABS: CARBON DIOXIDE,CO2 41 mmol/L (21-32)
[2024-12-23 10:10] LABS: BASOPHILS ABSOLUTE AUTO 0.0 x10-3/uL (0.0-0.1); BASOPHILS PERCENT AUTO 0.1 % (0.2-1.5); EOSINOPHILS ABSOLUTE AUTO 0.0 x10-3/uL (0.0-0.8); EOSINOPHILS PERCENT AUTO 0.3 % (0.6-8.1); LYMPHOCYTES ABSOLUTE AUTO 1.1 x10-3/uL (1.0-4.4); LYMPHOCYTES PERCENT AUTO 8.6 % (18.4-52.1); MEAN PLATELET VOLUME 9.4 fL (7.1-12.4); MONOCYTES ABSOLUTE AUTO 1.0 x10-3/uL (0.3-1.0); MONOCYTES PERCENT AUTO 7.9 % (4.4-15.7); NEUTROPHILS ABSOLUTE AUTO 10.1 x10-3/uL (1.5-6.3); NEUTROPHILS PERCENT AUTO 83.1 % (30.8-76.2); PLATELET COUNT,PLT 298 x10(3)uL (151-488); RED BLOOD CELL COUNT 3.83 x10(6)uL (3.60-5.20); RED CELL DISTRIBUTION WIDTH 14.1 % (12.3-16.5); WHITE BLOOD CELL COUNT,WBC 12.2 x10-3/uL (3.0-10.3)
[2024-12-23 10:13] LABS: BLOOD UREA NITROGEN,BUN 27 mg/dL (7-18); CHLORIDE,CL 93 mmol/L (100-110); CREATININE 0.9 mg/dL (0.55-1.02); EST CRCL DRUG DOSING (CG) 35.71 mL/min; ESTIMATED GFR 63 mL/min (>60); GLUCOSE RANDOM 157 mg/dL (80-116); POTASSIUM,K 3.4 mmol/L (3.5-5.3); SODIUM,NA 136 mmol/L (135-145)
[2024-12-23 10:21] LABS: CARBON DIOXIDE,CO2 41 mmol/L (21-32)
[2024-12-25 06:24] LABS: MEAN PLATELET VOLUME 8.4 fL (7.1-12.4); PLATELET COUNT,PLT 384 x10(3)uL (151-488); RED BLOOD CELL COUNT 4.03 x10(6)uL (3.60-5.20); RED CELL DISTRIBUTION WIDTH 13.9 % (12.3-16.5); WHITE BLOOD CELL COUNT,WBC 16.5 x10-3/uL (3.0-10.3)
[2024-12-25 06:30] LABS: BLOOD UREA NITROGEN,BUN 48 mg/dL (7-18); CHLORIDE,CL 90 mmol/L (100-110); CREATININE 1.2 mg/dL (0.55-1.02); EST CRCL DRUG DOSING (CG) 26.20 mL/min; ESTIMATED GFR 45 mL/min (>60); GLUCOSE RANDOM 111 mg/dL (80-116); POTASSIUM,K 3.4 mmol/L (3.5-5.3); SODIUM,NA 134 mmol/L (135-145)
[2024-12-25 06:34] LABS: CARBON DIOXIDE,CO2 42 mmol/L (21-32)
[2024-12-25 06:41] LABS: LYMPHOCYTES PERCENT MAN 6 % (13-37); MONOCYTES PERCENT MAN 6 % (4-12); SEG NEUTROPHILS PERCENT MAN 88 % (46-82)
[2024-12-26] MEDS: Nystatin Susp 100,000 Unit/ML 5 ML UD Cup PO SCH (09:20)
[2024-12-27] MEDS: Ondansetron 4 MG Tab.DIS PO PRN (11:57)
== END 2024-12-30 13:00 | disposition hospice, inpatient (51) | DRG 948 ==
LOC: FB.MS 11:13 → UNDODISIN 12-30 13:00
PROVIDERS: ADMIT Internal Medicine; ATTEND Internal Medicine
DX: R53.81 Other malaise (principal); J84.9 Interstitial pulmonary disease, unspecified; J96.11 Chronic respiratory failure with hypoxia; Z66 Do not resuscitate; H26.9 Unspecified cataract; M19.90 Unspecified osteoarthritis, unspecified site; I11.0 Hypertensive heart disease with heart failure; I48.0 Paroxysmal atrial fibrillation; I50.9 Heart failure, unspecified; M06.9 Rheumatoid arthritis, unspecified; K21.9 Gastro-esophageal reflux disease without esophagitis; M54.9 Dorsalgia, unspecified; G89.29 Other chronic pain; M54.2 Cervicalgia; E03.9 Hypothyroidism, unspecified; D64.9 Anemia, unspecified; Z90.49 Acquired absence of other specified parts of digestive tract; Z98.890 Other specified postprocedural states; Z90.710 Acquired absence of both cervix and uterus; Z96.649 Presence of unspecified artificial hip joint; Z79.01 Long term (current) use of anticoagulants; Z88.8 Allergy status to other drugs, medicaments and biological substances; Z79.899 Other long term (current) drug therapy; Z79.52 Long term (current) use of systemic steroids
CPT/HCPCS: 36415; 71045; 71045-26; 80048; 82272; 83735; 83880; 84132; 85025; 93005; 93010; 94640; 97110-GP; 97161-GP; 97165-GO; 97530-GP; 97535-GO; 99305; 99309; 99316; A9270-GY; J7512; Q0162

== ENCOUNTER 2024-12-30 13:01 | Inpatient (IN) | payer OTHER ==
[2024-12-30] MEDS ORDERED: Haloperidol Lactate 2 MG/ML Oral Soln 15 ML Bottle PO PRN (13:45)
[2024-12-30] MEDS: Ondansetron 4 MG Tab.DIS PO PRN (21:46)
[2024-12-31] MEDS: Hyoscyamine 0.125 MG Tab.SL PO PRN (15:00)
[2024-12-31] MEDS: LORazepam Conc Solution 2 MG/ML 30 ML Bottle PO PRN (16:47)
== END 2025-01-02 02:39 | disposition expired | DRG 951 ==
LOC: FB.MS 13:01 → UNDOADMIN 13:01 → FB.MS 15:32
PROVIDERS: ADMIT Internal Medicine; ATTEND Internal Medicine
DX: Z51.5 Encounter for palliative care (principal); J84.9 Interstitial pulmonary disease, unspecified; J96.11 Chronic respiratory failure with hypoxia; Z66 Do not resuscitate; R53.81 Other malaise; K21.9 Gastro-esophageal reflux disease without esophagitis; E03.9 Hypothyroidism, unspecified; M06.9 Rheumatoid arthritis, unspecified; I50.9 Heart failure, unspecified; I11.0 Hypertensive heart disease with heart failure; M19.90 Unspecified osteoarthritis, unspecified site; M54.9 Dorsalgia, unspecified; G89.29 Other chronic pain; D64.9 Anemia, unspecified; Z90.49 Acquired absence of other specified parts of digestive tract; Z98.890 Other specified postprocedural states; Z79.899 Other long term (current) drug therapy; Z79.01 Long term (current) use of anticoagulants; Z90.710 Acquired absence of both cervix and uterus; Z88.8 Allergy status to other drugs, medicaments and biological substances; Z79.52 Long term (current) use of systemic steroids; Z96.649 Presence of unspecified artificial hip joint
CPT/HCPCS: A9270-GY; J8540; Q0162; Q5005